=== PATIENT | female | born 1935 | race Caucasian/White ===

== ENCOUNTER 2016-06-06 10:07 | Emergency (ER) | payer OTHER ==
[2016-06-06] MEDS ORDERED: ASPIRIN PO STA (10:15)
[2016-06-06] MEDS ORDERED: NITROGLYCERIN SL PRN (10:15)
--- NOTE | 2016-06-06 10:34 | EKG Report ---
Test Performed on : 06/06/2016 10:20:32 AM Test Reason : Chest Pain Blood Pressure : / mmHG Vent. Rate : 044 BPM Atrial Rate : 044 BPM P-R Int : 184 ms QRS Dur : 160 ms QT Int : 502 ms P-R-T Axes : 032 -53 -25 degrees QTc Int : 429 ms Marked sinus bradycardia. Left axis deviation Left bundle branch block Abnormal ECG No previous ECGs available Unconfirmed Result
--- NOTE | 2016-06-06 10:36 | PROVIDER DOCUMENTATION ---
HPI-Chest Pain - General Chief Complaint: Shortness of Breath Stated Complaint: SOB Time Seen by Provider: 06/06/16 10:23 Source: patient Allergies/Adverse Reactions: Patient Allergies Allergy/AdvReac Type Severity Reaction Status Date / Time No Known Allergies Allergy Verified 06/06/16 11:12 Home Medications: BENAZEpril [Lotensin] 40 mg PO DAILY 10/03/12 Hydrochlorothiazide 25 mg PO DAILY 10/03/12 Multivitamins/Minerals [Centrum Silver] 1 each PO DAILY 06/06/16 - History of Present Illness-CP Nature of Presenting Problem: Reports to er with cc of chest pressure left sided nonradiating 10/04 at its worse x 3 days. Reports fatigued x 1 week and dyspnea on exertion. Family hx of cardiac and strokes. pt has no personal cardiac hx. Location: reports: other (left) Chest Pain Radiation: reports: no radiation Quality of Pain: reports: pressure Severity in ED: moderate Onset/Duration: 3 days ago Timing: still present Nitro Today/Relief: no nitro taken today Aspirin Treatment Today: no aspirin today Similar Symptoms Previously?: No Recently Seen Here or By Another Healthcare Provider: No Review of Systems - Adult - REVIEW OF SYSTEMS - ADULT Constitutional: denies: chills, fever, fatique Eyes: reports: no symptoms reported Ears, Nose, Mouth & Throat: denies: ear pain, sinus problem, throat pain Cardiovascular: reports: chest pain. denies: irregular heart rate, orthopnea, syncope Respiratory: reports: dyspnea on exertion, shortness of breath. denies: cough, wheezing Gastrointestinal: reports: no symptoms reported Genitourinary: reports: no symptoms reported Musculoskeletal: reports: no symptoms reported Integumentary: reports: no symptoms reported Neurological: reports: no symptoms reported Psychiatric: reports: no symptoms reported Endocrine: reports: no symptoms reported Hematologic/Lymphatic: reports: no symptoms reported Allergic/Immunologic: reports: no symptoms reported All Other Systems: Reviewed and Negative Past History - Adult - PAST MEDICAL HISTORY-ADULT Review of Records: reports: Nursing Assessment Review, Medications Reviewed Major Childhood Illnesses: reports: denies history Cardiovascular: reports: HTN Endocrine/Immune: reports: Diabetes - PRIOR SURGERIES/PROCEDURES Surgical/Procedure History: reports: cholecystectomy, BTL, , tonsillectomy - IMMUNIZATION STATUS Childhood Immunizations: See Nurse Assessment Flu Vaccine: See Nurse Assessment - FAMILY HISTORY Family History: reviewed, not pertinent - SOCIAL HISTORY Smoking: denies Substance Use: none/never Physical Exam-General - PHYSICAL EXAM-ADULT Initial Vital Signs Reviewed: Yes - CONSTITUTIONAL General Appearance: appears well, alert, anxious - EYES Eyes: PERRL/EOMI, pink conjunctivae - HEAD, EARS, NOSE, MOUTH & THROAT HENMT: normocephalic/atraumatic, moist mucous membranes, normal ENT inspection - NECK Neck: non-tender, full range of motion, supple, normal inspection - RESPIRATORY Respiratory: chest non-tender, lungs clear, normal breath sounds, no pleuratic chest pain, no respiratory distress, no accessory muscle use - CARDIOVASCULAR Cardiovascular: normal peripheral pulses, regular rate, rhythm, no edema, no gallop, no JVD, no murmur - GASTROINTESTINAL (ABDOMEN) Abdominal Exam: normal bowel sounds, non tender, soft, no organomegaly, no pulsatile mass - LYMPHATIC Lymphatic: no adenopathy - MUSCULOSKELETAL Back Exam: normal inspection, no CVA tenderness, no vertebral tenderness Extremity: normal range of motion, non-tender, pedal edema (2+ pitting edema BLE ) - SKIN Integumentary: normal color, normal turgor, warm/dry - NEUROLOGIC Neurologic: grossly normal, no motor/sensory deficits - PSYCHIATRIC Psych/Mental Status: normal mood/affect, normal thought content, normal thought process, oriented x 3 Progress - PLAN OF CARE/RESULTS Progress/Plan/Lab Results: Orders Category Date Time Status Cardiac Monitoring DIRECTED Care 06/06/16 10:16 Active Saline Loc NOW Care 06/06/16 10:16 Active CHEST-2 VIEWS [RAD] Stat Exams 06/06/16 10:16 Ordered CBC WITH ELECTRONIC DIFF [HEME] Stat Lab 06/06/16 10:16 Uncollected CK PROFILE [SP CHEM] Stat Lab 06/06/16 10:16 Uncollected COMPREHENSIVE METABOLIC PANEL [CHEM] Stat Lab 06/06/16 10:16 Uncollected D-DIMER [CHEM] Stat Lab 06/06/16 10:16 Uncollected MAGNESIUM [CHEM] Stat Lab 06/06/16 10:16 Uncollected PRO B-NATRIURETIC PEPTIDE Stat Lab 06/06/16 10:16 Uncollected PROTIME WITH INR [COAG] Stat Lab 06/06/16 10:16 Uncollected PTT [COAG] Stat Lab 06/06/16 10:16 Uncollected TROPONIN T Stat Lab 06/06/16 10:16 Uncollected Aspirin Med 06/06/16 10:15 Discontinued 325 mg PO STAT STA Nitroglycerin Sl [Nitroglycerin] Med 06/06/16 10:15 Active 0.4 mg SL Q5M PRN PRN EKG [EKG] Stat Ther 06/06/16 10:16 Draft Vital Signs - 24 hr 06/06/16 10:25 Temperature 97.7 F Pulse Rate 93 H Respiratory 20 Rate Blood Pressure 157/40 O2 Sat by Pulse 100 Oximetry Laboratory Tests 06/06/16 06/06/16 06/06/16 11:10 11:10 11:10 WBC 10.29 RBC 4.05 L Hgb 12.6 Hct 38.6 MCV 95.3 MCH 31.1 H MCHC 32.6 L RDW Std Deviation 12.6 Plt Count 162 MPV 12.2 H Immature Gran % (Auto) 0.0 Neut % (Auto) 77.0 H Lymph % (Auto) 16.1 L Letcher % (Auto) 5.2 Eos % (Auto) 1.2 Baso % (Auto) 0.5 Immature Gran # (Auto) 0.00 Neut # (Auto) 7.93 H Lymph # (Auto) 1.66 Letcher # (Auto) 0.53 Eos # (Auto) 0.12 Baso # (Auto) 0.05 PT INR PTT (Actin FS) D-Dimer 0.30 Sodium 137 Potassium 4.3 Chloride 102 Carbon Dioxide 23 L Anion Gap 12 BUN 28 H Creatinine 1.1 H Estimated GFR/1.73 m2 48 BUN/Creatinine Ratio 25 Glucose 120 H Calculated Osmolality 280 Calcium 9.9 Magnesium 2.1 Total Bilirubin 1.33 H AST 19 ALT 33 Alkaline Phosphatase 90 Creatine Kinase 43 Troponin T [id number] Pept Total Protein 6.8 Albumin 4.0 Globulin 2.8 Albumin/Globulin Ratio 1.4 06/06/16 06/06/16 06/06/16 11:10 11:10 11:10 WBC RBC Hgb Hct MCV MCH MCHC RDW Std Deviation Plt Count MPV Immature Gran % (Auto) Neut % (Auto) Lymph % (Auto) Letcher % (Auto) Eos % (Auto) Baso % (Auto) Immature Gran # (Auto) Neut # (Auto) Lymph # (Auto) Letcher # (Auto) Eos # (Auto) Baso # (Auto) PT 11.4 INR 1.07 PTT (Actin FS) 24.7 D-Dimer Sodium Potassium Chloride Carbon Dioxide Anion Gap BUN Creatinine Estimated GFR/1.73 m2 BUN/Creatinine Ratio Glucose Calculated Osmolality Calcium Magnesium Total Bilirubin AST ALT Alkaline Phosphatase Creatine Kinase Troponin T < 0.010 [id number] Pept 181 Total Protein Albumin Globulin Albumin/Globulin Ratio [address]Basu maravilla - EKG 1 Time of EKG reading by physician:: 10:20 EKG Read and Signed by:: Khurram Delgado EKG Interpretation (*Must complete 3 of following elements*): Abnormal Rate: 44 Rhythm: sinus alana [place]: left QRS: other (LBBB) MD Interval: normal ST Wave: normal 2 Time of EKG reading by physician:: 14:34 EKG Read and Signed by:: Khurram Delgado EKG Interpretation (*Must complete 3 of following elements*): Abnormal Rate: 35 Rhythm: sinus alana [place]: left QRS: LBB - XRAY 1 XRAY: Bilateral XRAY Study: Chest Impression: Normal XRAY Interpretation: nad - CONSULTS/PCP/HOSPITALIST Notification #1 *Consult/PCP/Hospitalist*: Time Discussed: 14:45 (will see in ED) #2 Consult: Time Discussed: 15:10 Consult Disposition: Will see in ED, Admit Departure - Departure Time of Disposition Order: 14:32 DIAGNOSIS: Bradycardia, SOB (shortness of breath) Chest pain Qualifiers: Chest pain type: unspecified Qualified Code(s): R07.9 - Chest pain, unspecified Disposition: ADMITTED INPATIENT 09 Certified Medical Emergency: Emergent Condition: Stable Referrals: Kate Taylor MD [Primary Care Provider] - Attestation - Scribe Verification/Attestation Scribe:: Arabella Taylor Acting as Scribe for:: Khurram Delgado Scribe documention review:: This chart was documented by a scribe and accurately reflects the service the provider performed and the decisions made by the provider.
[2016-06-06 11:16] LABS: MANUAL DIFF NEEDED? NO
[2016-06-06 11:20] LABS: BASO% 0.5 % (0.0-0.8); EOS# 0.12 X1000 (0.0-0.7); EOS% 1.2 % (0.0-10.0); HEMATOCRIT 38.6 % (37.0-47.0); HEMOGLOBIN 12.6 g/dL (12.0-16.0); LYMPH# 1.66 X1000 (1.2-3.4); LYMPH% 16.1 % (20.5-51.1); MCH 31.1 PG (27-31); MCHC 32.6 g/dL (33-37); MCV 95.3 FL (81-99); MONO# 0.53 X1000 (0.11-0.59); MONO% 5.2 % (1.7-9.3); MPV 12.2 FL (7.4-10.4); PLT 162 X1000 (130-400); RBC 4.05 XMIL (4.2-5.4)
[2016-06-06 11:29] LABS: INR 1.07; PROTIME 11.4 Seconds (9.2-11.7); PTT 24.7 Seconds (22.0-36.0)
[2016-06-06 11:38] LABS: CALCIUM 9.9 mg/dL (8.8-10.2); MAGNESIUM 2.1 mg/dL (1.5-2.7); POTASSIUM 4.3 mmol/L (3.5-5.1); TOTAL BILIRUBIN 1.33 mg/dL (0.20-1.00); TOTAL PROTEIN 6.8 g/dL (6.3-8.3)
--- NOTE | 2016-06-06 13:29 | Diag Imaging Result Document ---
PROCEDURE NAME: CHEST-2 VIEWS - 06/06/2016 TWO VIEWS OF THE CHEST: FINDINGS: There is no evidence of acute cardiac or pulmonary disease. There are no previous studies. IMPRESSION: No acute disease.
--- NOTE | 2016-06-06 15:05 | EKG Report ---
Test Performed on : 06/06/2016 2:34:06 PM Test Reason : BRADYCARDIA Blood Pressure : / mmHG Vent. Rate : 035 BPM Atrial Rate : 035 BPM P-R Int : 202 ms QRS Dur : 154 ms QT Int : 538 ms P-R-T Axes : 035 -51 -08 degrees QTc Int : 410 ms Marked sinus bradycardia. Left axis deviation Left bundle branch block Abnormal ECG When compared with ECG of 06-JUN-2016 10:20, (Unconfirmed) No significant change was found Unconfirmed Result
[2016-06-06 15:07] VITALS: BP 163/64
[2016-06-06] MEDS ORDERED: NS 1,000 ML IV ONE (15:09)
== END 2016-06-06 16:00 | disposition short-term general hospital (02) ==
LOC: ED 10:07
DX: R07.9 Chest pain, unspecified (principal); R00.1 Bradycardia, unspecified; R06.02 Shortness of breath; R06.09 Other forms of dyspnea; I10 Essential (primary) hypertension; E11.9 Type 2 diabetes mellitus without complications; R60.9 Edema, unspecified; R94.31 Abnormal electrocardiogram [ECG] [EKG]; Z79.899 Other long term (current) drug therapy
CPT/HCPCS: 36415; 71020; 80053; 82550; 83735; 83880; 84443; 84484; 85025; 85379; 85610; 85730; 93005; 99285; J7030